=== PATIENT | female | born 1970 | race Caucasian/White ===

== ENCOUNTER 2017-01-22 12:08 | Emergency (ER) | payer OTHER | END 2017-01-22 15:35 | disposition home or self-care (01) | LOC: ER1 12:08 | DX: R22.41 Localized swelling, mass and lump, right lower limb (principal); I10 Essential (primary) hypertension; F17.200 Nicotine dependence, unspecified, uncomplicated; Z88.0 Allergy status to penicillin | CPT/HCPCS: 72170; 93971; 99284 ==